=== PATIENT | female | born 1980 | race Caucasian/White ===

== ENCOUNTER 2016-12-16 13:07 | Day surgery (SDC) | payer OTHER ==
[~2016-12-16] VITALS: Ht 165.1 cm; Wt 106.2 kg
[2016-12-16 14:06] VITALS: Ht 165.1 cm; Wt 106.2 kg
[2016-12-16] MEDS ORDERED: LOSA25TA5 PO (14:13)
[2016-12-16] MEDS ORDERED: PANT20TA3 PO (14:13)
[2016-12-16] MEDS ORDERED: PROPOFOL 20 ML ONE ×2 (15:56→16:11)
[2016-12-16 16:18] VITALS: BP 113/66; PULSE 70; RESP 18
[2016-12-16 16:40] VITALS: BP 122/70; PULSE 71; RESP 22
--- NOTE | 2016-12-16 17:15 | GILP ---
DATE OF PROCEDURE: 12/16/2016 PROCEDURE: Esophagogastroduodenoscopy with biopsies. BRIEF HISTORY AND INDICATIONS: The patient is being evaluated for persistent dyspepsia. PREMEDICATION: Monitored anesthesia care by anesthesiologist. SURGEON: Christina Ware MD. INSTRUMENT USED: Olympus panendoscopy. TECHNIQUE: After informed consent, with the patient/relatives understanding the procedure, its indic ations, potential risks and complications, including but not limited to: allergic reaction, bleeding , perforation or infection, and after all pertinent questions were answered to the patients' satisfa ction, the patient/relatives signed witnessed informed consent. Following this, premedication was administered slowly IV push under careful cardiovascular and respi ratory monitoring with pulse oximetry, automatic blood pressure and property assessment monitor. Once the sedative effect was achieved the patient was place in the left lateral decubitus, the panen doscope was introduced and advanced under visual control. Careful examination of the upper gastrointestinal tract, both on insertion as well as withdrawal of the instrument disclosed the following findings: ESOPHAGUS: Distal esophagus shows erythema and edema and superficial erosion of the mucosa. There is also proximal displacement of the EG junction approximately 2 cm. Biopsies were obtained t o rule out H. pylori infection. STOMACH: Upon entrance to the stomach air was insufflated, the gastric vines distended normally. The mucosa of the fundus, body and antrum of the stomach shows mild erythema of the mucosa. Biopsies w ere obtained to rule out H. pylori infection. PYLORUS: The pylorus appears patent and within normal limits, with no evidence of gastric outlet obs truction. DUODENUM: The duodenal mucosa was carefully examined in the duodenal bulb as well as the second port ion of the duodenum and appears unremarkable with no evidence of duodenitis, ulcer or neoplasm. The instrument was then withdrawn, the patient tolerated the procedure well and was transfer out of the endoscopy suite awake, and in good condition to continue recovery under observation IMPRESSION: 1. Moderate distal esophagitis, rule out Hull esophagus, biopsies obtained. 2. Mild gastritis, rule out Helicobacter pylori infection, biopsies obtained. PLAN: We will continue present regimen with Protonix 40 mg daily. Further recommendation will depe nd on the patient's clinical course as well as review of biopsies. Dictated By: CHRISTINA WARE MS/NTS Conf#: [id number] DID#: [id number] CC: CHRISTINA WARE;*EndCC*
== END 2016-12-16 17:03 | disposition home or self-care (01) ==
LOC: GIL 13:07
PROVIDERS: ATTEND Internal Medicine Gastroenterology
DX: K29.50 Unspecified chronic gastritis without bleeding (principal); K20.8 Other esophagitis; I10 Essential (primary) hypertension; E66.01 Morbid (severe) obesity due to excess calories; Z68.39 Body mass index [BMI] 39.0-39.9, adult
CPT/HCPCS: 43239; 88305; 88312; 88313; Z7610